=== PATIENT | female | born 1985 | race Caucasian/White ===

== ENCOUNTER 2016-06-02 15:45 | Emergency (ER) | payer BC, OTHER ==
--- NOTE | 2016-06-02 17:08 | UC ---
Hand/Wrist HPI - HPI Summary HPI Summary: 30 yo female s/p FOOSH injury 5 days agai right wrist pain persists has been wearing a splint she is right handed - History Of Current Complaint Chief Complaint: UCUpperExtremity Stated Complaint: RIGHT WRIST INJURY WC Time Seen by Provider: 06/02/16 16:39 Hx Last Menstrual Period: DUE 04/06/2016 Onset/Duration: Sudden Onset, Lasting Days Severity Initially: Moderate Severity Currently: Moderate Pain Intensity: 4 Pain Scale Used: 0-10 Numeric Character Of Pain: Aching Aggravating Factor(s): Movement, Lifting, Flexion, Extension, Internal/External Rotation, Twisting Alleviating: Rest, Compression Associated Signs And Symptoms: Positive: Swelling Related History: Occupational Injury, Dominant Hand Right Hands: 1 - tender here/no snuff box tenderness - Allergies/Home Medications Allergies/Adverse Reactions: Allergies Allergy/AdvReac Type Severity Reaction Status Date / Time Amoxicillin [From Augmentin] AdvReac Diarrhea Verified 06/02/16 16:48 Clavulanic Acid AdvReac Diarrhea Verified 06/02/16 16:48 [From Augmentin] Home Medications: Home Medications Amitriptyline TAB* [Elavil TAB*] 20 mg PO BEDTIME 06/02/16 [History Confirmed ] Calcium 600 mg PO DAILY 06/02/16 [History Confirmed 06/02/16] Cholecalciferol [Vitamin D3 Ultra Strength] 5,000 unit PO DAILY 06/02/16 [ History Confirmed 06/02/16] Fexofenadine HCl [Allergy 24-Hr] 180 mg PO DAILY 06/02/16 [History Confirmed 09/13] Ihmxbewfrew-[id number]-[id number] C- [Glucosamine Chondroitin] 1 cap PO DAILY [History Confirmed 06/02/16] Levothyroxine TAB* [Synthroid TAB*] 75 mcg PO DAILY 06/02/16 [History Confirmed 06/02/16] Olopatadine 0.1% OPHTH (NF) [Patanol 0.1% OPHTH (NF)] 1 drop BOTH EYES 06/02/16 [History] Omeprazole CAP* [Prilosec CAP* 20 MG] 20 mg PO DAILY 06/02/16 [History Confirmed 06/02/16] SUMAtriptan TAB* [Imitrex TAB*] 50 mg PO DAILY PRN 06/02/16 [History Confirmed 06/02/16] Vortioxetine HBr [Brintellix] 10 mg PO DAILY 06/02/16 [History Confirmed ] busPIRone TAB* [Buspar TAB *] 15 mg PO BID 06/02/16 [History Confirmed 06/02/16] PMH/Surg Hx/FS Hx/Imm Hx Previously Healthy: Yes Endocrine History Of: Reports: Thyroid Disease - hypothyroid - Surgical History Surgical History: Yes Surgery Procedure, Year, and Place: back surgery 08/2011 - Family History Known Family History: Positive: Hypertension, Other - dyslipidemia - Social History Alcohol Use: Rare Substance Use Type: None Smoking Status (MU): Never Smoked Tobacco Review of Systems Constitutional: Negative Skin: Negative Eyes: Negative ENT: Negative Respiratory: Negative Cardiovascular: Negative Gastrointestinal: Negative Genitourinary: Negative Motor: Negative Neurovascular: Negative Musculoskeletal: Arthralgia Neurological: Negative Psychological: Negative All Other Systems Reviewed And Are Negative: Yes Physical Exam Triage Information Reviewed: Yes Appearance: Well-Appearing, No Pain Distress, Well-Nourished Vital Signs: Initial Vital Signs Temp 98.8 F 06/02/16 16:37 Pulse 79 06/02/16 16:37 Resp 16 06/02/16 16:37 BP 124/84 06/02/16 16:37 Pulse Ox 100 06/02/16 16:37 Vital Signs Reviewed: Yes Eyes: Positive: Conjunctiva Clear ENT: Positive: Hearing grossly normal. Negative: Nasal congestion, Nasal drainage, Trismus, Muffled/hoarse voice Neck: Positive: Supple Respiratory: Positive: Lungs clear, Normal breath sounds, No respiratory distress, No accessory muscle use Cardiovascular: Positive: RRR, No Murmur. Negative: Tachycardia, Bradycardia Bowel Sounds: Positive: Present Musculoskeletal: Positive: ROM Intact, Edema @ - distal right radius, Other: - NO SNUFF BOX TENDERNESS Psychological Exam: Normal Skin Exam: Normal Hand/Wrist Course/Dx - Differential Dx/Diagnosis Provider Diagnoses: RIGHT WRIST SPRAIN Discharge - Discharge Plan Condition: Stable Disposition: HOME Prescriptions: Ibuprofen TAB* [Motrin TAB*] 600 mg PO QID PRN #40 tab PRN Reason: Pain Patient Education Materials: Wrist Sprain (ED) Referrals: Gerson Sam MD [Medical Doctor] - 4 Days Additional Instructions: splint ice twice daily If you decide to see an orthopedist in the [place] area take copies of XRs with you
--- NOTE | 2016-06-02 17:25 | RAD ---
INDICATION: Right injury COMPARISON: None TECHNIQUE: AP, lateral, and oblique views were obtained. FINDINGS: The bony structures, joint spaces, and soft tissues are normal for age. IMPRESSION: NEGATIVE EXAMINATION.
[2016-06-02 17:48] VITALS: BP 141/83
== END 2016-06-02 17:44 | disposition home or self-care (01) ==
LOC: UCCORT 15:45
DX: S63.501A Unspecified sprain of right wrist, initial encounter (principal); W19.XXXA Unspecified fall, initial encounter; Y93.9 Activity, unspecified; Y92.9 Unspecified place or not applicable; Y99.0 Civilian activity done for income or pay; Z88.1 Allergy status to other antibiotic agents; E03.9 Hypothyroidism, unspecified
CPT/HCPCS: 99212; G0463